=== PATIENT | female | born 1990 | race Two or more races ===

== ENCOUNTER 2020-06-05 14:00 | Inpatient (IN) | payer OTHER ==
[~2020-06-05] VITALS: Ht 152.4 cm; Wt 68.5 kg
[2020-06-06] MEDS ORDERED: PRENATAL TABLE1 EAC3 PO (12:59)
[2020-06-06] MEDS ORDERED: PRENATAL TABLE1 EAC3 (12:59)
== END 2020-06-08 18:12 | DRG 807 ==
LOC: EDSTATUS 14:00 → LDR 06-06 12:27 → OB/GYN 06-06 12:27 → LDR 06-15 14:00 → EDBD 06-15 14:00
PROVIDERS: ADMIT Obstetrics & Gynecology; ATTEND Obstetrics & Gynecology
PROC: 10E0XZZ Delivery of Products of Conception, External Approach (ICD-10-PCS; principal; 2020-06-06)
PROC: 0KQM0ZZ Repair Perineum Muscle, Open Approach (ICD-10-PCS; 2020-06-06)
PROC: 4A0HXFZ Measurement of Products of Conception, Cardiac Rhythm, External Approach (ICD-10-PCS; 2020-06-06)
DX: O70.1 Second degree perineal laceration during delivery (principal); Z37.0 Single live birth; Z20.828 Contact with and (suspected) exposure to other viral communicable diseases; Z3A.38 38 weeks gestation of pregnancy